=== PATIENT | female | born 1995 | race Caucasian/White ===

== ENCOUNTER 2021-04-30 13:53 | Emergency (ER) | payer OTHER ==
[~2021-04-30] VITALS: Ht 149.9 cm; Wt 68.5 kg
[2021-04-30 14:07] VITALS: BP 105/71
[2021-04-30] MEDS ORDERED: ONDANSETRON 4 MG/2 ML VIAL IVP ONE (15:05)
[2021-04-30] MEDS ORDERED: ALUMINUM HYD/MAG/SIMETHICONE 30 ML, DICYCLOMINE HCL LIQUID 20 MG, LIDOCAINE VISCOUS 2% ... PO ONE ×3 (15:05)
[2021-04-30] MEDS ORDERED: NACL 0.9% 1,000 ML IV SCH (15:05)
[2021-04-30] MEDS ORDERED: DICYCLOMINE HCL LIQUID 10 MG/5 ML UDC ONE ×2 (15:11→15:13)
[2021-04-30] MEDS ORDERED: ALUMINUM HYD/MAG/SIMETHICONE 30 ML UDC ONE (15:11)
[2021-04-30] MEDS ORDERED: LIDOCAINE VISCOUS 2% 20 ML UDC ONE (15:11)
[2021-04-30 15:37] LABS: BASOPHILS # (AUTO) 0.1 K/uL (0.00-0.22); BASOPHILS % (AUTO) 0.6 % (0.0-2.0); EOSINOPHILS % (AUTO) 0.2 % (0.0-4.0); HEMATOCRIT 35.2 % (36-48); HEMOGLOBIN 12.1 g/dL (12.0-16.0); LYMPHOCYTES # (AUTO) 1.3 K/uL (2.5-16.5); LYMPHOCYTES % (AUTO) 13.4 % (20.5-51.1); MEAN CORPUSCULAR HEMOGLOBIN 32 pg (27-31); MEAN CORPUSCULAR HGB CONC 34 g/dL (33-37); MONOCYTES # (AUTO) 0.2 K/uL (0.8-1.0); MONOCYTES % (AUTO) 1.8 % (1.7-9.3); NEUTROPHILS # (AUTO) 8.4 K/uL (1.8-7.7); PLATELET COUNT (AUTO) 257 K/uL (140-450); RED BLOOD CELL COUNT(AUTO) 3.78 MIL/uL (4.20-5.40); WHITE BLOOD COUNT (AUTO) 10.1 K/uL (4.8-10.8)
[2021-04-30 15:52] LABS: ALBUMIN 4.2 g/dL (3.4-5.0); ANION GAP 10.8 (8-16); CARBON DIOXIDE 27.6 mmol/L (21-32); CREATININE 0.6 mg/dL (0.6-1.3); POTASSIUM 3.4 mmol/L (3.5-5.1); TOTAL BILIRUBIN 0.4 mg/dL (0.0-1.0)
[2021-04-30] MEDS ORDERED: FAMO-90 PO (17:07)
[2021-04-30] MEDS ORDERED: ONDA-24 SL (17:07)
[2021-04-30 17:13] VITALS: BP 105/71
== END 2021-04-30 17:14 | disposition home or self-care (01) ==
LOC: MED 13:53
DX: R11.2 Nausea with vomiting, unspecified (principal); R06.02 Shortness of breath; R05 Cough; R07.9 Chest pain, unspecified; Z79.899 Other long term (current) drug therapy
CPT/HCPCS: 36415; 80053; 81002; 81025; 83690; 85025; 96361; 96374; 99283; J2405

== ENCOUNTER 2021-07-02 19:28 | Emergency (ER) | payer OTHER ==
[~2021-07-02] VITALS: Ht 149.9 cm; Wt 70.8 kg
[~2021-07-02 19:28] MED LIST: FAMO-90 PO; ONDA-24 SL
[2021-07-02 20:35] VITALS: BP 122/87
--- NOTE | 2021-07-02 20:38 | NUR ---
TO LOBBY A/W BED AMBULATORY
--- NOTE | 2021-07-02 20:40 | NUR ---
25 Y/O FEMALE PATIENT PRESENTS TO ED WITH RT QUADRANT ABDOMINAL PAIN . PT STATES "I HAVE ABDOMINAL PAIN THTA RADIATES TO BACK THAT STARTED YESRDAY. 8/10 SHARP PAIN. I ALSO FELT NAUSEAOUS. I ALSO HAVE TENDER AND SWOLLEN LYMPH NODES." DENIES N/V/D; SKIN IS PINK/WARM/DRY; AAOX4 WITH EVEN AND STEADY GAIT; LUNGS CLEAR BL; HR EVEN AND REGULAR; PT DENIES ANY FEVER, CP, SOB, OR COUGH AT THIS TIME; PATIENT STATES PAIN OF 0/10 AT THIS TIME; VSS; PATIENT POSITIONED FOR COMFORT; HOB ELEVATED; BEDRAILS UP X2; BED DOWN. ER MD MADE AWARE OF PT STATUS. NKA PMH: UTI
[2021-07-02 21:21] LABS: APPEARANCE,URINE CLOUDY (CLEAR); BILIRUBIN,URINE NEGATIVE (NEGATIVE); BLOOD, URINE 1+ (NEGATIVE); COLOR,URINE YELLOW (YELLOW); LEUKOCYTE ESTERASE ,URINE 1+ (NEGATIVE); NITRITE, URINE NEGATIVE (NEGATIVE); UGLUCOSE NEGATIVE (NEGATIVE)
--- NOTE | 2021-07-02 22:10 | NUR ---
PT AMBULATED UNASSISTED TO ER BED 07
[2021-07-02] MEDS ORDERED: ONDANSETRON 4 MG/2 ML VIAL IVP ONE (23:00)
[2021-07-02] MEDS ORDERED: NACL 0.9% 1,000 ML IV SCH (23:00)
[2021-07-02] MEDS ORDERED: MORPHINE SULFATE 2 MG/ML SYR IVP ONE (23:00)
[2021-07-02 23:18] LABS: BASOPHILS % (AUTO) 0.3 % (0.0-2.0); EOSINOPHILS # (AUTO) 0.3 K/uL (0-0.4); EOSINOPHILS % (AUTO) 2.7 % (0.0-4.0); HEMATOCRIT 42.4 % (36-48); HEMOGLOBIN 14.6 g/dL (12.0-16.0); LYMPHOCYTES # (AUTO) 3.1 K/uL (2.5-16.5); LYMPHOCYTES % (AUTO) 29.8 % (20.5-51.1); MEAN CORPUSCULAR HEMOGLOBIN 32 pg (27-31); MEAN CORPUSCULAR HGB CONC 34 g/dL (33-37); MEAN CORPUSCULAR VOLUME 93.4 fL (80-94); MONOCYTES # (AUTO) 0.6 K/uL (0.8-1.0); MONOCYTES % (AUTO) 5.6 % (1.7-9.3); NEUTROPHILS # (AUTO) 6.4 K/uL (1.8-7.7); NEUTROPHILS % (AUTO) 61.6 % (42.2-75.2); PLATELET COUNT (AUTO) 297 K/uL (140-450); RED BLOOD CELL COUNT(AUTO) 4.53 MIL/uL (4.20-5.40); RED CELL DISTRIBUTION WIDTH 13.5 % (11.6-13.7); WHITE BLOOD COUNT (AUTO) 10.4 K/uL (4.8-10.8)
[2021-07-02 23:34] LABS: CARBON DIOXIDE 26.3 mmol/L (21-32); CREATININE 0.6 mg/dL (0.6-1.3); POTASSIUM 3.3 mmol/L (3.5-5.1); TOTAL BILIRUBIN 0.8 mg/dL (0.0-1.0)
[2021-07-03] MEDS ORDERED: POTASSIUM CHLORIDE 10 MEQ TABER PO ONE (02:15)
[2021-07-03] MEDS ORDERED: cefTRIAXone 1,000 MG VIAL ONE (02:33)
--- NOTE | 2021-07-03 03:00 | NUR ---
Patient appears to be resting comfortably in bed. Vital Signs within normal limits. Respirations even and unlabored.
[2021-07-03] MEDS ORDERED: KETOROLAC 30 MG/ML VIAL ONE (05:02)
[2021-07-03] MEDS ORDERED: KETOROLAC 30 MG/ML VIAL IVP ONE (05:05)
[2021-07-03] MEDS ORDERED: IBUP-2218 PO (05:07)
[2021-07-03] MEDS ORDERED: CEPH-588 PO (05:07)
[2021-07-03] MEDS ORDERED: CIPR7.5S OT (05:15)
[2021-07-03 05:25] VITALS: BP 122/87
--- NOTE | 2021-07-03 05:25 | NUR ---
Patient discharged with v/s stable. Written and verbal after care instructions given and explained. Patient alert, oriented and verbalized understanding of instructions. Ambulatory with steady gait. All questions addressed prior to discharge. ID band removed. Patient advised to follow up with PMD. Rx of KEFLEX AND IBUPROFEN given. Patient educated on indication of medication including possible reaction and side effects. Opportunity to ask questions provided and answered.
== END 2021-07-03 05:25 | disposition home or self-care (01) ==
LOC: MED 19:28
DX: N12 Tubulo-interstitial nephritis, not specified as acute or chronic (principal); D23.9 Other benign neoplasm of skin, unspecified; E87.6 Hypokalemia; Z79.899 Other long term (current) drug therapy
CPT/HCPCS: 36415; 74176; 76700; 76856; 80053; 81001; 83690; 84703; 85025; 87086; 96361; 96365; 96375; 99285; J0696; J1885; J2270; J2405; J7030; Q0092